=== PATIENT | male | born 1990 | race Caucasian/White ===

== ENCOUNTER 2017-03-01 17:20 | Emergency (ER) | payer OTHER ==
[~2017-03-01] VITALS: Ht 175.3 cm; Wt 74.8 kg
[~2017-03-01 17:20] MED LIST: ADVAIR DISKU 11 UNIT INH; FISH OIL CONCEN1 SGL PO; L-LYSINE500 M1 PO; LITHIUM CARBON300 M2 PO; NEXIUM20 M1 PO; SEROQUEL XR400 MG PO; SEROQUEL XR50 MG PO; ZOFRAN4 M1 SL
--- NOTE | 2017-03-01 17:57 | ED INFLUENZA/URI COMPLAINT ---
History of Present Illness General Chief Complaint: Upper Respiratory Sx/Fever Stated Complaint: COUGHING, ASTHMA ACTING UP X 4DAYS, FEVER Source: patient, old records Exam Limitations: no limitations Vital Signs & Intake/Output Vital Signs & Intake/Output Vital Signs Date Time Temp Pulse Resp B/P Pulse O2 O2 Flow FiO2 Ox Delivery Rate 03/01 1911 84 134/86 03/01 1724 100.9 88 16 149/88 100 Room Air Allergies Coded Allergies: Penicillins (THROAT CLOSURE 07/02/16) Reconcile Medications Albuterol Sulfate (Proventil Hfa) 90 MCG HFA.AER.AD 2 PUF INH BID PRN RESPIRATORY (Reported) Azithromycin (Zithromax) 250 MG TABLET 1 DP PO AD BRONCHITIS 2 the first day followed by 1 for days 2-5 Fluticasone/Salmeterol (Advair 250-50 Diskus) 250 MCG-50 MCG/DOSE BLST.W.DEV 1 PUF INH BID PRN RESPIRATORY (Reported) Methylprednisolone. (Medrol) 4 MG TAB.DS.PK 1 DP PO AD BRONCHITIS 6 on day 1 then reduce by one tablet daily until gone Quetiapine Fumarate (Seroquel XR) 400 MG TAB.ER.24H 1 TAB PO QPM MENTAL HEALTH /SLEEP (Reported) Triage Note: PT STATES HE HAS HAD COLD S/S FOR THE PAST 5 DAYS WITH HIS COUGH GETTING INCREASINGLY WORSE. PT REPORTS HAVING A FEVER ON AND OFF. Triage Nurses Notes Reviewed? yes Onset: Abrupt Duration: day(s): (4), constant Timing: recent history Severity: moderate Severity Numbers: 6 Prior Episodes/Possible Cause: occassional episodes No Modifying Factors: none Associated Symptoms: cough, fever/chills, nasal drainage HPI: 26-year-old male with history of asthma presents emergency room complaining of a five-day history of productive cough associated with intermittent subjective fever and chills. No sick contacts recent travel. Patient denies shortness of breath chest pain abdominal pain nausea vomiting or diarrhea. He does not smoke no modifying factors or associated symptoms otherwise. has been using his inhalers with improvement. no sorethroat, no ear pain, (+) rhinorrhea (SEAMUS NEVILLE,KIKI) Past History Travel History Traveled to [place] past 21 day No Medical History Any Pertinent Medical History? 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 No (KIKI HARRIS) Review of Systems Review of Systems Constitutional: Reports: see HPI. All Other Systems: Reviewed and Negative Comments Review of systems: See HPI, All other systems negative. Constitutional, no chills fever, no malaise HEENT: no sore throat no congestion, no ear pain Cardiovascular: No chest pain , no palpitation Skin,no rashes, no change in skin Respiratory: No dyspnea cough no sputum GI: No nausea no vomiting, no diarrhea, : No dysuria Muscle skeletal: No joint pain, no back pain, no neck pain, Neurologic: no headache Psych: No stress no anxiety no depression,. Heme/endocrine: No bruising no bleeding Immunology: No lymphadenopathy (KIKI HARRIS) Physical Exam Physical Exam General Appearance: well developed/nourished, no apparent distress, alert, awake Ears, Nose, Throat: normal ENT inspection, moist mucous membrane Comments: Well-developed well-nourished patient in no apparent distress. Head/Face: Atraumatic, no maxillary/frontal sinus tenderness, no facial swelling Eyes: PERRL, EOMI, no conjunctival injection. No nystagmus Ear:External auditory canal and Tympanic membranes clear, no erythema, no FB. Nose: atraumatic.Normal inspection Throat: Moist mucous membranes.Pharynx normal. No pharyngeal erythema/exudate seen. No stridor/drooling or assymetry. No swelling or edema. Neck: Supple, no lymphadenopathy, FROM Back: FROM, Nontender Cardiovascular: Regular rate and rhythms no murmurs Respiratory: No respiratory distress. Patient speaking in full complete sentences. Breath sounds clear to auscultation bilaterally: NO W/R/R Extremities: full range of motion Neuro: Alert and oriented x3 Skin: Warm & dry;No appreciable rash on exposed skin Psych: Mood affect normal, normal memory normal judgment. Core Measures Severe Sepsis Present: No Septic Shock Present: No (KIKI HARRIS) Progress Differential Diagnosis: influenza, otitis, pneumonia, pharyngitis, sinusitis, bronchitis Plan of Care: Orders Procedure Date/time Status RAPID VIRAL INFLUENZA A 03/01 175 Complete Microbiology 03/01 1813 NASOPHARYN: Influenza Virus A & B Rapid Smear - COMP . Flu swab Sent, lungs are clear auscultation patient is nontoxic appearing otherwise speaking in full complete sentences medicated with Tylenol in triage I discussed with the patient at length all of their results. I had an extensive conversation regarding need for close follow up with their primary care physician this week as well as return precautions. I answered all of their questions, they feel comfortable with the plan and follow-up care. I discussed the medications that they will receive with the patient. I gave them signs and symptoms that could indicate an adverse reaction. I have advised them to limit their activities until they can see how they respond to the medication. (KIKI HARRIS) Initial ED EKG: none (KIKI HARRIS) Departure Departure Time of Disposition: 1904 Disposition: HOME OR SELF CARE Condition: Stable Clinical Impression Primary Impression: Bronchitis Referrals: UNKNOWN (PCP/Family) Additional Instructions: zpak, medrol dose john as directed. these were sent to your pharmacy. tylenol or motrin every 4-6 hours. continue using your inhaler as prescribed. follow up with your pmd this week, return with any concerns Departure Forms: Customer Survey General Discharge Information Prescriptions: Current Visit Scripts Azithromycin (Zithromax) 1 DP PO AD #6 TAB 2 the first day followed by 1 for days 2-5 Methylprednisolone. (Medrol) 1 DP PO AD #1 DP 6 on day 1 then reduce by one tablet daily until gone (KIKI HARRIS) PA/ELECTRICIAN MAINTENANCE Co-Sign Statement Statement: ED Attending supervision documentation- [] I saw and evaluated the patient. I have also reviewed all the pertinent lab results and diagnostic results. I agree with the findings and the plan of care as documented in the PA's/ELECTRICIAN MAINTENANCE's documentation. [x] I have reviewed the ED Record and agree with the PA's/ELECTRICIAN MAINTENANCE's documentation. [] Additions or exceptions (if any) to the PAs/ELECTRICIAN MAINTENANCE's note and plan are summarized below: [] (HARESH THACKER,JESSICA Potts)
[2017-03-01] MEDS ORDERED: ADVAIR 250-501 EACH INH (18:35)
[2017-03-01] MEDS ORDERED: SEROQUEL XR400 M1 PO (18:35)
[2017-03-01] MEDS ORDERED: PROVENTIL HFA6.7 GM INH (18:35)
[2017-03-01] MEDS ORDERED: MEDROL4 M2 PO (19:05)
[2017-03-01] MEDS ORDERED: ZITHROMAX250 M2 PO (19:05)
[2017-03-01 19:11] VITALS: BP 134/86
== END 2017-03-01 19:12 ==
LOC: ERH 17:20
DX: J40 Bronchitis, not specified as acute or chronic (principal)
CPT/HCPCS: 87804; 87804-59

== ENCOUNTER 2018-03-30 12:16 | Inpatient (IN) | payer OTHER ==
[~2018-03-30] VITALS: Ht 175.3 cm; Wt 70.3 kg
[~2018-03-30 12:16] MED LIST changes: +ADVAIR 250-501 EACH INH; +MEDROL4 M2 PO; +PROVENTIL HFA6.7 GM INH; +SEROQUEL XR400 M1 PO; +ZITHROMAX250 M2 PO
[2018-03-30 13:15] LABS: ABSOLUTE BASOPHIL COUNT 0 /CUMM (0.0-0.2); ABSOLUTE EOSINOPHIL COUNT 0.1 /CUMM (0.0-0.7); ABSOLUTE GRANULOCYTE CT 5.7 /CUMM (1.4-6.5); ABSOLUTE LYMPH COUNT 1.5 /CUMM (1.2-3.4); ABSOLUTE MONOCYTE COUNT 0.5 /CUMM (0.10-0.60); BASOPHIL % 0.5 % (0.0-2.0); EOSINOPHIL % 1.6 % (0-5); GRANULOCYTE % 73.4 % (42.2-75.2); HEMATOCRIT 45.5 % (42-52); MEAN CORPUSCULAR HGB 30.3 PG (27.0-31.0); MEAN CORPUSCULAR HGB CONC 34.1 G/DL (33.0-37.0); MEAN CORPUSCULAR VOLUME 88.9 FL (80.0-94.0); MEAN PLATELET VOLUME 7.3 FL (7.4-10.4); PLATELET COUNT 163 /CUMM (130-400); RBC DISTRIBUTION WIDTH 13.9 % (11.5-14.5); RED BLOOD CELL CT 5.12 /CUMM (4.70-6.10); WHITE BLOOD CELL COUNT 7.8 /CUMM (4.8-10.8)
[2018-03-30 13:23] LABS: LITHIUM < 0.2 mmol/L (0.6-1.2)
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
--- NOTE | 2018-03-30 17:04 | ED PSYCH CRISIS CONSULTATION ---
Crisis Consult Basic Assessment Date of Consult: 03/30/18 Responsible Person/Accompanied By: self Insurance Authorization: Insurance #1: Insurance name: LOWELL BROWN Phone number: Policy number: [id number] Group number: Authorization number: ED Provider: Patient's ED Provider: Alex Aldrich MD Primary Care Physician: Patient's PCP: Unknown PCP's Phone Number: Current Psychiatrist: Dr Galan [facility] Chief Complaint: Psychiatric Related Complaint Patient's Quote: I feel like I'm going schizophrenic Present Illness: Pt is a 27 yo male biba this afternoon to [place] on [place] [address] [facility] due to agitation and paranoia. Pt mother Melonie reports pt has had multiple aggressive outbursts past week including pushing her to the ground and against the wall as well as destroying property in the home. She reports pt has been making statements like "I have no reason to live" but reports no attempts. Pt verbalizes passive SI but with no plan. Past denies suicide attempt hx but prior [facility] records indicate pt was hospitalized for attempt to hang self and has been admitted X2 to [facility] in Oct 2015 and Dec 2015. Pt had briefly attended [facility] in 2016 and is currently receiving medication management at [facility] with Dr Galan. He is prescribed Seroquel for sleep. Pt reports he had been on [place] for about 10 yrs until last year. His last attended appointment was February 05. Pt denies HI and minimizes recent aggressive episodes. Pt states "I am not a mean person". Pt reports feeling frustrated by his mother because she "smirks" at him and doesn't believe or express concern regarding his somatic issues. Pt reports thinking he has a virus or bacteria in his brain or spinal cord. Whe asked if pt ever experiences hearing voices or hallucinations replied " feel like I'm going schizophrenic". Pt discussed moments of feeling disoriented or that he is in a different reality. Pt also discussed feeling depressed and lonely due to not having a lot of friends. He reports this started in school because he was in special ed classes. Pt also discussed having autism and multiple times a day engages in repetitive hand movements because it feels good and has to tell him self to stop doing it. Pt also reports experiencing anxiety, irritability and frustration primarily in the morning but his mood improves later in the day. Pt denies etoh but admits to daily cannabis use for the past 8 yrs. Pt states "I smoke weed all day long". Pt reports he works part-time at [employer] past yr about 25-30 hrs/week. Both pt and mother reports he is a reliable worker. Mother reports pt has been refusing to go to therapy. She reports he is obsessed with conspiracy theories and goes on rants repeating himself over and over. She feels he is no longer safe to reside in their home and wants him to live elsewhere. Pt presented as anxious, agitated, hyperverbal and OX3. Pt with poor judgement, insight and impulse control. Pt seemed to become calmer during the interview and was relatively forthcoming about his history and current mental state. Case reviewed with Dr Fraser. Recommendation for inpatient psychiatric admission due to risk of harm to self and others as well as grave disability. Pt not in agreement with plan and became agitated and made threats of non-compliance resulting in pt requiring IM ativan and benadryl. Pt placed on a PEC and will be admitted to [facility]. Patient's Address: [address] [place] [address] Other Phone Number: Who Do You Live With? Family Family/Informants Interviewed: collateral provided by pt mother Melonie Menezes [phone] - see collateral note Allergies - Coded Allergies: Penicillins (THROAT CLOSURE 07/02/16) Current Medications - Scheduled Medications Quetiapine Fumarate (Seroquel XR) 400 MG TAB.ER.24H 1 TAB PO QPM MENTAL HEALTH /SLEEP #90 (Reported) Entered as Reported by Milagros Krueger on 03/01/17 1252 Laboratory Results: Laboratory Tests 03/30/18 1414: Urine Opiates Screen < 100, Methadone Screen 43, Barbiturate Screen < 60, Ur Phencyclidine Scrn < 6.00, Amphetamines Screen < 100, U Benzodiazepines Scrn < 85, Urine Cocaine Screen < 50, Urine Cannabis Screen > 80.00 H, Urine Color YEL , Urine Clarity CLEAR, Urine pH 6.5, Ur Specific [place] 1.020, Urine Protein 30 H, Urine Ketones NEG, Urine Nitrite NEG, Urine Bilirubin NEG, Urine Urobilinogen 0.2, Ur Leukocyte Esterase NEG, Ur Microscopic SEDIMENT EXAMINED, Urine Mucus FEW, Urine Hemoglobin NEG, Urine Glucose NEG 03/30/18 1253: Anion Gap 16, Estimated GFR > 60, BUN/Creatinine Ratio 18.2, Glucose 145 H, Calcium 10.2, Total Bilirubin 0.7, AST 37, ALT 40, Alkaline Phosphatase 50, Total Protein 8.5 H, Albumin 5.5 H, Globulin 3.0, Albumin/Globulin Ratio 1.8, CBC w Diff NO MAN DIFF REQ, RBC 5.12, MCV 88.9, MCH 30.3, MCHC 34.1, RDW 13.9, MPV 7.3 L, Gran % 73.4, Lymphocytes % 18.7 L, Monocytes % 5.8, Eosinophils % 1.6, Basophils % 0.5, Absolute Granulocytes 5.7, Absolute Lymphocytes 1.5, Absolute Monocytes 0.5, Absolute Eosinophils 0.1, Absolute Basophils 0, [place] < 0.2 L, Serum Alcohol < 10.0 Past History Past Medical History Neurological: NONE EENT: NONE Cardiovascular: LBBB Respiratory: NONE Gastrointestinal: GERD Hepatic: NONE Renal: NONE Musculoskeletal: FRACTURE R ANKLE Psychiatric: bipolar disease Endocrine: NONE Blood Disorders: NONE Cancer(s): NONE 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 Physical Limitations (Interventions): Stopped taking lithium on his own Psychiatric Treatment History Psych Treatment Psychiatric Treatment Yes Inpatient Treatment Yes Outpatient Treatment Yes Location of Treatment [facility] Reason for Treatment aggressive outbursts/SI Response to Treatment pt has inconsistently participated in outpatient treatment Diagnosis by History: Bipolar Disorder Autism Cannabis use d/o Substance Use/Abuse History Drug Use/Abuse Substances Used/Abused Yes Substance Used/Abused Marijuana First Use age 19 Last Used yesterday How much used/taken smokes "all day" How often daily For how long 8 yrs Substance Abuse Treatment Substance Abuse Treatment Past Substance Abuse [place] No Inpatient Treatment No Outpatient Treatment No Comments: pt reports daily marijuana use; denies other substance use Current Mental Status Mental Status Orientation: Person, Place, Situation Affect: Anxious Speech: WNL Neuro-vegetative: Appetite Decreased, Concentration Poor, Sleep Disturbance Appearance Appearance- Dress/Hygiene: Hospital scrubs; groomed; good eye contact; engageable Behaviors Thought Process: Disorganized, Irrational, Loose Association Thought Content: Delusions, Obsessions, Paranoid, Somatic Memory: WNL Insight: Fair SI/HI Risk Assessment Past Suicidal Ideation/Attempts Yes Current Suicidal Ideation/Att No Past Homicidal Ideation/Att: No Current Homicidal Ideation/Attempts No Degree of Intent: Thoughts/No Intent Danger To: Others, Property, Self Gravely Disabled: Lack of Insight, Poor Impulse Control, Poor Judgment Risk Factors: high anxiety/distress, history of Violence, history of suicide atmpts, SA/MH hospitalized, substance abuse, poor impulse control, male Lethality Ratin PTSD Checklist PTSD Done? patient declined ED Management Sitter: Yes Restraints: No DSM5/PS Stressors/Medical Prob Diagnosis' (DSM 5, Stressors, Medical): Bipolar Disorder F31.2 Cannabis Use D/O F12.20 Autism Spectrum D/O F84.0 family conflict not consistent with treatment Current GAF: 20 Comments: Pt demonstrateing increased irritability and aggressive episodes at home towards mother and property. Pt engaged in paranoid and delusional thought process. Departure Disposition Psych Medical Clearance Date: 03/30/18 Medically Cleared at: 1615 Time Started: 1615 Time Ended: 1700 Psychiatrist Consulted: Jill Fraser MD Date Disposition Established: 03/30/18 Time Disposition Established: 173 Plan for Disposition - Modality: Inpatient Psychiatry Facility: [facility] Rationale for Disposition: Mood stabilization; medication assessment Type of IP Admission: PEC Referrals Unknown (PCP/Family)
--- NOTE | 2018-03-30 19:07 | IP CRISIS DIAG ASSESS PSYCH ---
Diagnostic Assessment Basic Assessment Insurance Authorization: Insurance #1: Insurance name: LOWELL BROWN Phone number: Policy number: [id number] Group number: Authorization number: [id number] Primary Care Physician: Patient's PCP: Unknown PCP's Phone Number: Patient's Quote: I feel like I'm going schizophrenic Present Illness: Pt is a 27 yo male biba this afternoon to [facility] on [place] [address] due to agitation and paranoia. Pt mother Melonie reports pt has had multiple aggressive outbursts past week including pushing her to the ground and against the wall as well as destroying property in the home. She reports pt has been making statements like "I have no reason to live" but reports no attempts. Pt verbalizes passive SI but with no plan. Past denies suicide attempt hx but prior CPS records indicate pt was hospitalized for attempt to hang self and has been admitted X2 to CPS in Oct 2015 and Dec 2015. Pt had briefly attended [facility] in 2016 and is currently receiving medication management at [facility] with Dr Galan. He is prescribed Seroquel for sleep. Pt reports he had been on [place] for about 10 yrs until last year. His last attended appointment was February 05. Pt denies HI and minimizes recent aggressive episodes. Pt states "I am not a mean person". Pt reports feeling frustrated by his mother because she "smirks" at him and doesn't believe or express concern regarding his somatic issues. Pt reports thinking he has a virus or bacteria in his brain or spinal cord. Whe asked if pt ever experiences hearing voices or hallucinations replied " feel like I'm going schizophrenic". Pt discussed moments of feeling disoriented or that he is in a different reality. Pt also discussed feeling depressed and lonely due to not having a lot of friends. He reports this started in school because he was in special ed classes. Pt also discussed having autism and multiple times a day engages in repetitive hand movements because it feels good and has to tell him self to stop doing it. Pt also reports experiencing anxiety, irritability and frustration primarily in the morning but his mood improves later in the day. Pt denies etoh but admits to daily cannabis use for the past 8 yrs. Pt states "I smoke weed all day long". Pt reports he works part-time at [employer] past yr about 25-30 hrs/week. Both pt and mother reports he is a reliable worker. Mother reports pt has been refusing to go to therapy. She reports he is obsessed with conspiracy theories and goes on rants repeating himself over and over. She feels he is no longer safe to reside in their home and wants him to live elsewhere. Pt presented as anxious, agitated, hyperverbal and OX3. Pt with poor judgement, insight and impulse control. Pt seemed to become calmer during the interview and was relatively forthcoming about his history and current mental state. Case reviewed with Dr Fraser. Recommendation for inpatient psychiatric admission due to risk of harm to self and others as well as grave disability. Pt not in agreement with plan and became agitated and made threats of non-compliance resulting in pt requiring IM ativan and benadryl. Pt placed on a PEC and will be admitted to CPS. Patient's Address: [address] [place] [address] Other Phone Number: Who Do You Live With? Family Feel Safe Where You Live? Yes Feel Safe in Your Relationship Yes Marital Status: single Do You Have Children? No Primary Language? Bengali Language(s) Spoken At Home: Bengali Family/Informants Interviewed: collateral provided by pt mother Melonie Menezes [phone] - see collateral note Allergies - Coded Allergies: Penicillins (THROAT CLOSURE 07/02/16) Current Medications - Scheduled Medications Quetiapine Fumarate (Seroquel XR) 400 MG TAB.ER.24H 1 TAB PO QPM MENTAL HEALTH /SLEEP #90 (Reported) Entered as Reported by Milagros Krueger on 03/01/17 9122 [place] of Psych Med Use: pt prescribed seroquel at night for sleep Lab Results: Laboratory Tests 03/30/18 1414: Urine Opiates Screen < 100, Methadone Screen 43, Barbiturate Screen < 60, Ur Phencyclidine Scrn < 6.00, Amphetamines Screen < 100, U Benzodiazepines Scrn < 85, Urine Cocaine Screen < 50, Urine Cannabis Screen > 80.00 H, Urine Color YEL , Urine Clarity CLEAR, Urine pH 6.5, Ur Specific [place] 1.020, Urine Protein 30 H, Urine Ketones NEG, Urine Nitrite NEG, Urine Bilirubin NEG, Urine Urobilinogen 0.2, Ur Leukocyte Esterase NEG, Ur Microscopic SEDIMENT EXAMINED, Urine Mucus FEW, Urine Hemoglobin NEG, Urine Glucose NEG 03/30/18 1253: Anion Gap 16, Estimated GFR > 60, BUN/Creatinine Ratio 18.2, Glucose 145 H, Calcium 10.2, Total Bilirubin 0.7, AST 37, ALT 40, Alkaline Phosphatase 50, Total Protein 8.5 H, Albumin 5.5 H, Globulin 3.0, Albumin/Globulin Ratio 1.8, CBC w Diff NO MAN DIFF REQ, RBC 5.12, MCV 88.9, MCH 30.3, MCHC 34.1, RDW 13.9, MPV 7.3 L, Gran % 73.4, Lymphocytes % 18.7 L, Monocytes % 5.8, Eosinophils % 1.6, Basophils % 0.5, Absolute Granulocytes 5.7, Absolute Lymphocytes 1.5, Absolute Monocytes 0.5, Absolute Eosinophils 0.1, Absolute Basophils 0, [place] < 0.2 L, Serum Alcohol < 10.0 Toxicology Screen Completed? Yes Results: positive Symptoms of Use: daily cannabis use Past History Past Surgical History Surgical History none Abuse/Trauma History Trauma History/Current Trauma: Denies Victim or Perpretator? victim (none reported) Patient's Age at Time of Trauma: 1 Abuse/Trauma Treatment: none reported Legal History Current Legal Status: none Have you ever been arrested? Yes Number of Arrests: 2 Psychosocial History Strengths/Capabilities: Able to ask for help, wants to feel better. Physical Limitations (Interventions): Stopped taking lithium on his own Psychiatric Treatment History Psych Treatment Psychiatric Treatment Yes Inpatient Treatment Yes Outpatient Treatment Yes Location of Treatment [facility] Reason for Treatment aggressive outbursts/SI Response to Treatment pt has inconsistently participated in outpatient treatment Diagnosis by History: Bipolar Disorder Autism Cannabis use d/o Risk Factors: high anxiety/distress, history of Violence, history of suicide atmpts, SA/MH hospitalized, substance abuse, poor impulse control, male Substance Use/Abuse History Drug Use/Abuse minimum 12mo Hx Substances Used/Abused Yes Substance Used/Abused Marijuana First Use age 19 Last Used yesterday How much used/taken smokes "all day" How often daily For how long 8 yrs Substance Abuse Treatment Substance Abuse Treatment Past Substance Abuse TX No Inpatient Treatment No Outpatient Treatment No Education History Highest Level of Education: high school/GED Preferred Learning Style: visual, auditory, experiential Current Mental Status Mental Status Orientation: Person, Place, Situation Affect: Anxious Speech: WNL Neuro-vegetative: Appetite Decreased, Concentration Poor, Sleep Disturbance Appearance Appearance- Dress/Hygiene: Hospital scrubs; groomed; good eye contact; engageable Behaviors Thought Process: Disorganized, Irrational, Loose Association Thought Content: Delusions, Obsessions, Paranoid, Somatic Memory: WNL Insight: Fair SI/HI Risk Assessment - Minimum 6mo History- Past Suicidal Ideation/Attempts Yes Current Suicidal Ideation/Att No Past Homicidal Ideation/Att: No Current Homicidal Ideation/Attempts No Degree of Intent: Thoughts/No Intent Danger To: Others, Property, Self Gravely Disabled: Lack of Insight, Poor Impulse Control, Poor Judgment Risk Factors: high anxiety/distress, history of Violence, history of suicide atmpts, SA/MH hospitalized, substance abuse, poor impulse control, male Lethality Ratin Needs/Init TX Plan/Goals: Psychiatric Evaluation Medication Assessment Individual, Family and Group Tx Coordinated Discharge Planning AUDIT-C Questionnaire: AUDIT-C Questionnaire: Response Value ETOH use in the past year Never 0 # drinks typical/day Doesn't Drink 0 6 or > drinks per occasion Never 0 Total 0 DSM5/PS Stressors/Medical Prob Diagnosis' (DSM 5, Stressors, Medical): Bipolar Disorder F31.2 Cannabis Use D/O F12.20 Autism Spectrum D/O F84.0 family conflict not consistent with treatment Current GAF: 20 Comments: Pt demonstrateing increased irritability and aggressive episodes at home towards mother and property. Pt engaged in paranoid and delusional thought process.
[2018-03-30 20:32] VITALS: BP 147/97
[2018-03-31 07:34] VITALS: BP 141/78
--- NOTE | 2018-03-31 09:11 | CPS PROVIDER INIT ASMT PSYCH ---
Psychiatric Admission Java [id number] Application Developer's Note Reviewed: Yes Patient Seen and Examined: Yes Identifying Information: Enrique is a 27-year-old single white male Chief Complaint: In ED/Crisis Unit he reported "I feel like I am going schizophrenic." Reaction to Hospitalization: on PEC History of Present Illness Onset of Illness: Brought by Ambulance to [facility] on [address] due to agitation and paranoia. Circumstances Leading to Admission: Pt mother Melonie reports pt has had multiple aggressive outbursts past week including pushing her to the ground and against the wall as well as destroying property in the home. She reports pt has been making statements like "I have no reason to live" but reports no attempts. Pt verbalizes passive SI but with no plan. Past denies suicide attempt hx but prior CPS records indicate pt was hospitalized for attempt to hang self and has been admitted X2 to CPS in Oct 2015 and Dec 2015. Pt had briefly attended [facility] in 2015 and is currently receiving medication management at [facility] with Dr Galan. He is prescribed Seroquel for sleep. Pt reports he had been on [place] for about 10 yrs until last year. His last attended appointment was February 05. Pt denies HI and minimizes recent aggressive episodes. Pt states "I am not a mean person". Pt reports feeling frustrated by his mother because she "smirks" at him and doesn't believe or express concern regarding his somatic issues. Pt reports thinking he has a virus or bacteria in his brain or spinal cord. Whe asked if pt ever experiences hearing voices or hallucinations replied " feel like I'm going schizophrenic". Pt discussed moments of feeling disoriented or that he is in a different reality. Pt also discussed feeling depressed and lonely due to not having a lot of friends. He reports this started in school because he was in special ed classes. Pt also discussed having autism and multiple times a day engages in repetitive hand movements because it feels good and has to tell him self to stop doing it. Pt also reports experiencing anxiety, irritability and frustration primarily in the morning but his mood improves later in the day. Pt denies etoh but admits to daily cannabis use for the past 8 yrs. Pt states "I smoke weed all day long". Pt reports he works part-time at [employer] past yr about 25-30 hrs/week. Both pt and mother reports he is a reliable worker. Mother reports pt has been refusing to go to therapy. She reports he is obsessed with conspiracy theories and goes on rants repeating himself over and over. She feels he is no longer safe to reside in their home and wants him to live elsewhere. Problem(s) Justifying Need for Admission: see above Past Psychiatric History Past Diagnosis(es)- if any: Bipolar II disorder, mre depressed. Cannabis use d/o, severe Autism Spectrum/ ??Learning Disability Past Precipitating Factors- if any: cannabis use - Include inpatient and outpatient treatment Treatment History: he was in CPS in Dec 2015 and October 2015 Outpatient with [facility] , more recently with Dr. Galan History of Suicide Attempts or Gestures pt. denied (? reliability) Substance Abuse History: Chronic cannabis use Allergies: Coded Allergies: Penicillins (THROAT CLOSURE 07/02/16) Home Med List: Seroquel XR 400 mg at bedtime - Include any medical condition(s) that may - impact the patient's recovery/remission Past Medical History: ?? Heart murmur (? reliability ,,, patient may have somatic delusions) Past History Medical History Neurological: NONE EENT: NONE Cardiovascular: LBBB, he reports heart murmur? Respiratory: NONE Gastrointestinal: GERD Hepatic: NONE Renal: NONE Musculoskeletal: FRACTURE R ANKLE Psychiatric: bipolar disease Endocrine: NONE Blood Disorders: NONE Cancer(s): NONE LAUNCHMAN/Reproductive: NONE History of MRSA: No History of VRE: No History of CDIFF: No Isolation History: Standard Surgical History Surgical History: none Psychiatric Family/Social Hx Family History Psychiatric Illness: adopted, record indicated that biological mother of alcoholism Substance Use: biological mother alcoholism Suicides: adopted, no known suicides to extent of his knowledge Other Family History: adopted Social History Living Situation: with adoptive mother Significant Relationships (family/friends): adoptive mother Education: HS Vocation/Occupation: unemployed Legal: denied Healthly Behaviors Screening Tobacco Screening Tobacco Use from ED Docu: Current Not Daily - If tobacco counseling indicated - the following topics are required. - #1 Recognizing dangerous situations. - #2 Coping Skills. - #3 Basic information about quitting. Status of Tobacco Cessation Counseling: #1, #2 AND #3 Completed Cessation Med Status Nicotine Gum Ordered Alcohol Screening - ETOH screen POS if BAL >=80 or Audit-C>= M4/F3 Audit-C Score from Diag Assess: 0 Blood Alcohol Level: Laboratory Tests 03/30 1253 Toxicology Serum Alcohol (<10 MG/DL) < 10.0 Alcohol Use Screening Results: Neg per Audit C &/or BAL - If ETOH counseling indicated - the following topics are required. - #1 Express concern about the patient's - drinking at unhealthy levels, include informing - of national norms for moderate drinking: - men <= 14 drinks/week, max 4 drinks/occasion - women <= 7 drinks/week, max 3 drinks/occasion - #2 Providing feedback, including linking alcohol to - negative physical effects (liver injury, hypertension) - negative emotional effects (relationship problems and - depression) - negative occupational consequences (reduced work - performance) - #3 Advising the patient to abstain from alcohol or - to drink below national norms for moderate drinking - (as listed above). Status of ETOH Use Counseling: N/A B/C NO ETOH Use Metabolic Screening - Screen if on a Neuroleptic Medication - Metabolic screening should include: - Blood Pressure, BMI, Glucose or Hgb A1c, & a - Lipid profile from within the past 365 days. Metabolic Screening Patient on a neuroleptic(s) . Enter below results for Hemoglobin A1C, and lipid panel if obtained during the last 365 days. BMI: 22.900 Blood Pressure: 141/78 Laboratory Results From [facility] (If applicable): will add-on HbA1c Lab Cholesterol 139 mg/dL 02/15/14 1015 Cholesterol/HDL Ratio 5 % H 02/15/14 1015 HDL Cholesterol 28 mg/dL L 02/15/14 1015 LDL Cholesterol, Calc 93 mg/dL 02/15/14 1015 Triglycerides 90 mg/dL 02/15/14 1015 Exam and Plan Mental Status Examination Ambulation Status: steady gait Appearance: unremarkable Attitude towards examiner: cooperative Psychomotor activity: normal Behavior: no abnormal behaviors Quality of speech: talkative with mild pressure Affect: Full range of affect Mood: Denied feeling depressed Suicidal Ideation: Denied thoughts of suicide Homicidal Ideation: Denied violent thoughts or thoughts of homicide Hallucinations: Denied hallucinations Paranoid/Delusional Material: Denied feeling paranoid, there were no specific delusions during the interview today, prior to arrival to the emergency room it looks like he was having some paranoid delusions Difficulties with thought organization: Seems to be coherent, there was no major thought disorder other than an occasional tangents Insight: Impaired Judgment: Impaired Orientation: He was alert and oriented to time, place, and person Cognition: Some difficulties with attention and concentration Memory Function: No impairment in short-term memory Estimate of intellectual functioning: Average Assets/Strengths Patient Identified Assets/Strengths: The patient is a likable, he has a supportive mother, and honest Impression/Plan Impression and Plan: A 27-year-old single white male who presented to the emergency room on a police emergency examination request after his mother called 911 for his eyeglasses behaviors at home.. The patient has history of chronic history cannabis use. 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 Galan at care Continue Seroquel XR 400 mg at bedtime Added as needed doses of Ativan for anxiety Collateral information, biopsychosocial assessment, and aftercare planning - Factors that would help patient function - in a less restrictive setting. Factors: The patient will be discharged once his psychotic symptoms are under control and if he continues to deny any thoughts of suicide The patient also may have to start looking into a different housing option because his mother does not want him to be fair she has not started the session process yet.
[2018-03-31 12:22] VITALS: BP 179/78
--- NOTE | 2018-03-31 14:05 | History & Physical ---
General Information and HPI MD Statement: I have seen and personally examined DERRICK HEWITT and documented this H&P. The patient is a 27 year old M who presented with a patient stated chief complaint of "I feel like I'm going schizophrenic". Source of Information: patient, family, old records Exam Limitations: unable to give history History of Present Illness: 27-year-old white male brought in by ambulance on ER due to paranoia and agitation. Apparently had an altercation and was brought to the emergency room paranoid agitated pression of medication compliance, hyper verbal light of ideas and paranoid delusions he denies alcohol intake but states he uses marijuana daily mother reports patient has had multiple aggressive outbursts for the past week also patient having passive suicidal ideations , for all those reasons he is admitted for evaluation and treatment Allergies/Medications Allergies: Coded Allergies: Penicillins (THROAT CLOSURE 07/02/16) Home Med list Quetiapine Fumarate (Seroquel XR) 400 MG TAB.ER.24H 1 TAB PO QPM MENTAL HEALTH /SLEEP (Reported) Compliance With Home Meds: POOR Past History Travel History Traveled to [facility] past 21 day No Medical History Neurological: NONE EENT: NONE Cardiovascular: LBBB he reports heart murmur? 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 Exam & Diagnostic Data Last 24 Hrs of Vital Signs/I&O Vital Signs Date Time Temp Pulse Resp B/P B/P Pulse O2 O2 Flow FiO2 Mean Ox Delivery Rate 03/31 1222 99 179/78 03/31 0734 98.4 91 141/78 03/30 2032 98.3 62 147/97 03/30 1949 144/74 03/30 1908 98.9 74 18 158/74 99 Room Air 03/30 1711 98.5 60 16 141/77 99 Room Air 03/30 1430 97.6 60 18 167/79 100 Room Air Intake & Output 03/31 1600 03/31 0800 03/31 0000 Intake Total Output Total Balance Patient 155 lb Weight Physical Exam General Appearance Alert, Oriented X3 Skin No Rashes, No Breakdown, No Significant Lesion HEENT PERRLA, EOMI Neck Supple, No JVD, No thryomegaly, +2 Carotid Pulse wo Bruit, No LAD Lymphatic Axillary nl, Cervical nl Cardiovascular Regular Rate, No Murmurs Lungs Clear to Auscultation, Normal Air Movement Abdomen Normal Bowel Sounds, Soft, No Tenderness, No Hepatospenomegaly, No Masses Neurological Exam Findings: Normal Gait, Normal Speech, Strength at 5/5 X4 Ext, Normal Tone, Sensation Intact, Cranial Nerves 3-12 NL, Reflexes 2+ Cranial Nerves II through XII: Intact Extremities No Cyanosis, No Edema, Normal Pulses, No Tenderness/Swelling Vascular Normal Pulses, Pulses Symmetrical Last 24 Hrs of Labs/Jovany: Laboratory Tests 03/30/18 1414: Urine Opiates Screen < 100, Methadone Screen 43, Barbiturate Screen < 60, Ur Phencyclidine Scrn < 6.00, Amphetamines Screen < 100, U Benzodiazepines Scrn < 85, Urine Cocaine Screen < 50, Urine Cannabis Screen > 80.00 H, Urine Color YEL , Urine Clarity CLEAR, Urine pH 6.5, Ur Specific [place] 1.020, Urine Protein 30 H, Urine Ketones NEG, Urine Nitrite NEG, Urine Bilirubin NEG, Urine Urobilinogen 0.2, Ur Leukocyte Esterase NEG, Ur Microscopic SEDIMENT EXAMINED, Urine Mucus FEW, Urine Hemoglobin NEG, Urine Glucose NEG Diagnostic Data EKG Results No new changes from previous Assessment/Plan As Ranked By This Provider Problem List: 1. Agitation 2. Suicidal ideation 3. Bipolar disorder Miscellaneous Miscellaneous Documentation Attending Case Discussed With: Angelo THACKER,Jose Alberto Primary Care Physician: Unknown Patient sees these Specialists Psychiatry Level of Patient Care: [facility] Consults Needed: Consulting Specialty: Psychiatry Consulting Physician: Reason for Consult: paranoia agitation bipolar disorder
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
[2018-03-31 16:02] VITALS: BP 143/81
[2018-03-31 19:30] VITALS: BP 146/83
[2018-04-01 07:48] VITALS: BP 152/86
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
[2018-04-01 12:08] VITALS: BP 144/79
--- NOTE | 2018-04-01 14:53 | CP SOUTH PROGRESS NOTE PSYCH ---
Psych (Inpt) Progress Note Progress Note Mental Status Examination Ambulation Status: steady gait cooperative priti Psychomotor activity, no abnormal behaviors talkative with mild pressure Full range of affect Denied feeling depressed Denied thoughts of suicide Denied violent thoughts or thoughts of homicide Denied hallucinations Denied feeling paranoid, there were no specific delusions during the interview today, prior to arrival to the emergency room it looks like he was having some paranoid delusions Seems to be coherent, there was no major thought disorder other than an occasional tangents Poor Insight, Impaired Judgment He was alert and oriented to time, place, and person Some difficulties with attention and concentration No impairment in short-term memory Assessment: A 27-year-old single White male who presented to the emergency room after his mother called 911 for his eyeglasses behaviors at home.. The patient has history of chronic and heavy cannabis use. 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
[2018-04-01 15:40] VITALS: BP 138/72
[2018-04-01 19:35] VITALS: BP 146/77
[2018-04-02 07:26] VITALS: BP 133/85
[2018-04-02] MEDS ORDERED: KLONOPIN0.5 M1 PO (08:11)
--- NOTE | 2018-04-02 08:15 | Patient Discharge Instructions ---
Psych Discharge Inst General Discharge Information Reason for Admission: mother called 911 because patient was agitated Psy Discharge Primary Diag+ Unspecified Psychotic Dis R/O Cannabis induced psyc Psy Discharge Secondary Diag+ Cannabis Use Disorder Summary Tests/Major Procedures no significant abnormalities Studies Pending at DC: none Patient Instructions Contact Information Your Psychiatrist on [facility] was Angelo THACKER,Jose Alberto * If you are experiencing an emergency related to this hospitalization, please call [phone] to contact the treating psychiatrist or the psychiatrist-on- call. * To Request a copy of your medical records, please contact the Medical Records Department at [phone]. * To request results of studies pending at the time of discharge, please call [phone]. * Continue your Medications until directed to stop by your Healthcare provider. General Medication Information Please continue to take your new medications and your continued home medications , unless otherwise indicated on your discharge medication list, or unless directed by your MD or BRIDGE BUILDER to stop them. Special Instructions Diet Regular Activity Normal - Tobacco Use Treatment Offered Post DC Medications Offered: Refused Tob Medication Tx Post DC Tobacco Treatment Plan: Refused Tobacco Tx Pgm - EtOH/Drug Use D/O Treatment Offered Post DC Medications Offered: Ref Med EtOH/Drug Use D/O Post DC EtOH/SubAbuse TX Plan: Refused Post DC Tx Pgm Metabolic Screening Patient on a neuroleptic(s) . Enter below results for Hemoglobin A1C, and lipid panel if obtained during the last 365 days. BMI: 22.900 Blood Pressure: 133/85 Laboratory Results From [facility] (If applicable): refused to give new blood sample for Lipids, HbA1c was done as add-on Hemoglobin A1c 4.8 % 03/30/18 1253 Cholesterol 139 mg/dL 02/15/14 1015 Cholesterol/HDL Ratio 5 % H 02/15/14 1015 HDL Cholesterol 28 mg/dL L 02/15/14 1015 LDL Cholesterol, Calc 93 mg/dL 02/15/14 1015 Triglycerides 90 mg/dL 02/15/14 1015 Advance Directives Does the Patient have Medical Advance Directives No/Refused further info Does Pt have Psychiatric Advance Directives? No/Refused further info Does Patient have a Designated Surrogate Decision Maker: No Information About Psychiatric Advance Directives Provided? Refused Discharge Plan Post Hospital Treatment Plan: [facility]
--- NOTE | 2018-04-02 08:31 | CP SOUTH PROGRESS NOTE PSYCH ---
Psych (Inpt) Progress Note Progress Note Vital Signs Date Time Temp Pulse B/P B/P O2 FiO2 04/02 0726 97.8 87 133/85 04/01 1935 99.2 88 146/77 04/01 1540 66 138/72 Mental Status Examination: The patient was alert and oriented to time, place, and person. He showed normal psychomotor activity, no abnormal movements, and steady gait. He was calm and cooperative. He was talkative with mild pressure. He showed full range of affect. Denied feeling depressed, denied thoughts of suicide, denied violent thoughts or thoughts of homicide, and denied hallucinations. The patient denied feeling paranoid and there were no specific delusions during the interview, The patient was-for the most part-coherent, there was occasional tangents Poor Insight, Impaired Judgment He exhibited some difficulties with attention and concentration No impairment in short-term memory Assessment: A 27-year-old single White male who presented to the emergency room after his mother called 911 for his agitated behaviors at home. The patient has history of chronic and heavy cannabis use. He has has 2 previous admissions to [facility] in December 2015 and October 2015/was diagnosed as bipolar disorder but it looks like it may have been also a primary psychotic disorder from chronic cannabis use Diagnosis(es): Unspecified psychotic disorder R/O Cannabis induced psychotic disorder Possible bipolar 1 Cannabis use disorder, severe Autism spectrum disorder/Learning Disabilities/ rule out being on the spectrum of alcohol syndrome Treatment Plan Update: Discharge home to / with [facility]
--- NOTE | 2018-04-02 08:54 | DISCHARGE SUMMARY REPORT-PSYCH ---
Visit Information Visit Dates/Diagnosis' Admission Date: 03/30/18 Discharge Date: 04/02/18 Reason for Admission: mother called 911 because patient was agitated Psy Discharge Primary Diag: Unspecified Psychotic Dis R/O Cannabis induced psyc Psy Discharge Secondary Diag: Cannabis Use Disorder Hospital Course Significant Lab Findings: There are no significant lab abnormalities Course Complications: There were no complications while the patient was on the inpatient psychiatric unit Consultations: The patient had a history and physical examination when he was on the inpatient psychiatric unit. Please refer to the patient's medical record for the details of the H&P. Allergies: Coded Allergies: Penicillins (THROAT CLOSURE 07/02/16) Hospital Course/TX Response: 03/31/2018: Impression and Plan: A 27-year-old single white male who presented to the emergency room on a police emergency examination request after his mother called 911 for his eyeglasses behaviors at home.. The patient has history of chronic history cannabis use. 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 Galan at [facility] Continue Seroquel XR 400 mg at bedtime Added as needed doses of Ativan for anxiety Collateral information, biopsychosocial assessment, and aftercare planning 04/01/2018: Treatment Plan Update: Continue Seroquel XR 400 mg at bedtime as needed doses of Ativan for anxiety Discharged tomorrow 04/02/2018: Mental Status Examination: The patient was alert and oriented to time, place, and person. He showed normal psychomotor activity, no abnormal movements, and steady gait. He was calm and cooperative. He was talkative with mild pressure. He showed full range of affect. Denied feeling depressed, denied thoughts of suicide, denied violent thoughts or thoughts of homicide, and denied hallucinations. The patient denied feeling paranoid and there were no specific delusions during the interview, The patient was-for the most part-coherent, there was occasional tangents Poor Insight, Impaired Judgment He exhibited some difficulties with attention and concentration No impairment in short-term memory Assessment: A 27-year-old single White male who presented to the emergency room after his mother called 911 for his agitated behaviors at home. The patient has history of chronic and heavy cannabis use. He has has 2 previous admissions to [facility] in December 2015 and October 2015/was diagnosed as bipolar disorder but it looks like it may have been also a primary psychotic disorder from chronic cannabis use Diagnosis(es): Unspecified psychotic disorder R/O Cannabis induced psychotic disorder Possible bipolar 1 Cannabis use disorder, severe Autism spectrum disorder/Learning Disabilities/ rule out being on the spectrum of alcohol syndrome Treatment Plan Update: Discharge home to F/U with [facility] Discharge HBIPS - Tobacco Use Treatment Offered Post DC Medications Offered: Refused Tob Medication Tx Post DC Tobacco Treatment Plan: Refused Tobacco Tx Pgm - EtOH/Drug Use D/O Treatment Offered Post DC Medications Offered: Ref Med EtOH/Drug Use D/O Post DC EtOH/SubAbuse TX Plan: Refused Post DC Tx Pgm Metabolic Screening - Screen if on a Neuroleptic Medication - Metabolic screening should include: - Blood Pressure, BMI, Glucose or Hgb A1c, & a - Lipid profile from within the past 365 days. Metabolic Screening Patient on a neuroleptic(s) . Enter below results for Hemoglobin A1C, and lipid panel if obtained during the last 365 days. BMI: 22.900 Blood Pressure: 133/85 Laboratory Results From [facility] (If applicable): refused to give new blood sample, HbA1c was add-on Lab Cholesterol 139 mg/dL 02/15/14 1015 Cholesterol/HDL Ratio 5 % H 02/15/14 1015 HDL Cholesterol 28 mg/dL L 02/15/14 1015 Hemoglobin A1c 4.8 % 03/30/18 1253 LDL Cholesterol, Calc 93 mg/dL 02/15/14 1015 Triglycerides 90 mg/dL 02/15/14 1015 Discharge Instructions General Discharge Information Multiple Neuroleptics: ([X]) Not Applicable Discharge Diet Regular Discharge Activity Normal DC Disposition: Home Referrals Ordered Referrals Provider Referral 04/12/18 For Groups: [[facility]] [facility] appt. with Dr. Galan 04/12/18 11am [address] [place] [address] Provider Referral 04/06/18 For Groups: [[facility]] [facility] appt. with Maral Ortega (therapist) 04/06/18 12pm [address] [place] [address] Prescriptions Continue taking these medications: Quetiapine Fumarate (Seroquel XR) 400 MG TAB.ER.24H 1 Tablet ORAL Every night Qty = 90 Comments: Last Taken:04/01/18 Time:9pm Start taking the following new medications: Clonazepam (Klonopin) 0.5 MG TABLET 1 Tablet ORAL DAILY NEEDED Qty = 15 No Refills Comments: NOT TAKEN DURING HOSPITAL STAY Studies Pending at Discharge none Copies To: Toni
--- NOTE | 2018-04-02 10:19 | SOCIAL WORKER PROG NOTE PSYCH ---
Social Work Progress Note Progress Note Spoke with Jaja Contreras at [facility]. Enrique will have an appt. with Maral Ortega (therapist) on 04/06 at 12pm. Spoke with Enrique this morning. He reported waking up around 3am startled. He thinks the squeakiness from his bed may have woke him. It took him 15-20 minutes to go back to sleep. He said he feels fine. Talked about the relationship with his parents and how he needs to start looking at the fact that they are aging and they need him. Talked about how he has some control in keeping peace in the house. Discussed using his therapist as a way to discuss goals, issues at home, and symptoms. He appeared a little grandiose today stating he feels the whole world is crazy, but he's not. He loves himself for his abilities to be open minded and how smart he is. Mom came to pick him up at 10:30. He is planning to return to work today.
--- NOTE | 2018-04-02 11:30 | SOCIAL WORKER PROG NOTE PSYCH ---
Social Work Progress Note Faxed Referral(s) Referred To: [facility] Transition of Care Documents sent: Health Summary Faxed to: Jaja Contreras Fax #: [phone] Faxed by: Shelia Barkley Date faxed: 04/02/18 Time Faxed: [phone]
--- NOTE | 2018-04-03 11:45 | SOCIAL WORKER PROG NOTE PSYCH ---
Social Work Progress Note Progress Note Determination Status: DISCHARGE COMPLETED Thank you. You have completed your discharge for this episode of care. Member Name Member ID Member Subscriber Name Subscriber ID DERRICK HEWITT [id number] DERRICK HEWITT [id number] Related Authorization # Related Client Authorization # Discharge # Discharge Date [id number] 04/02/2018 Level of Service Type of Service Level Of Care Type of Care IP - INPATIENT/HLOC P - MENTAL HEALTH I - INPATIENT CIP - INPATIENT HOSPITAL - INPATIENT HOSPITAL Provider Name & Address Provider ID Provider Alternate ID MURPHY MONTAÑOO [id number] [address] [place] [phone]
== END 2018-04-02 10:31 | DRG 751 ==
LOC: ERH 12:16 → ERHI 17:48 → CP SOUTH 17:48 → ENTRNSPT 19:53 → EDTRNSPTSTS 20:01 → EDTRNSPT 20:01 → CP SOUTH 20:06 → CMPTRNSPT 20:18 → CP SOUTH 03-31 10:18
PROVIDERS: Emergency Medicine
DX: F23 Brief psychotic disorder (principal); F12.99 Cannabis use, unspecified with unspecified cannabis-induced disorder
CPT/HCPCS: 80307; 81001; 93005; 93010; 96372; G0480; J0515; J1200; J1630